=== PATIENT | female | born 1975 | race Caucasian/White ===

== ENCOUNTER 2017-08-05 21:05 | Emergency (ER) | payer MEDICAID ==
[~2017-08-05] VITALS: Ht 154.9 cm; Wt 101.2 kg
[~2017-08-05 21:05] MED LIST: HYDR-565 PO
[2017-08-05] MEDS ORDERED: sulfamethoxazole/trimethoprim DS (800/160mg) tablet PO ONE (21:45)
[2017-08-05] MEDS ORDERED: BACDS PO (21:48)
[2017-08-05] MEDS ORDERED: FLUC150T66 PO (21:48)
[2017-08-05 21:52] VITALS: BP 155/95
== END 2017-08-05 22:00 | disposition home or self-care (01) ==
LOC: ER 21:06
DX: N76.4 Abscess of vulva (principal); I10 Essential (primary) hypertension; J45.909 Unspecified asthma, uncomplicated; K21.9 Gastro-esophageal reflux disease without esophagitis; E11.9 Type 2 diabetes mellitus without complications; F17.210 Nicotine dependence, cigarettes, uncomplicated; Z86.14 Personal history of Methicillin resistant Staphylococcus aureus infection; Z98.51 Tubal ligation status; Z88.6 Allergy status to analgesic agent; Z91.040 Latex allergy status
CPT/HCPCS: 99283

== ENCOUNTER 2017-11-12 13:29 | Emergency (ER) | payer MEDICAID ==
[~2017-11-12] VITALS: Ht 157.5 cm; Wt 103.0 kg
[2017-11-12] MEDS ORDERED: SULF1TAB49 PO (14:22)
[2017-11-12 14:31] VITALS: BP 142/92
== END 2017-11-12 14:33 | disposition home or self-care (01) ==
LOC: ER 13:30
DX: L03.116 Cellulitis of left lower limb (principal); L02.416 Cutaneous abscess of left lower limb; I10 Essential (primary) hypertension; J45.909 Unspecified asthma, uncomplicated; E11.9 Type 2 diabetes mellitus without complications; K21.9 Gastro-esophageal reflux disease without esophagitis; M19.90 Unspecified osteoarthritis, unspecified site; Z86.14 Personal history of Methicillin resistant Staphylococcus aureus infection; Z88.6 Allergy status to analgesic agent; Z91.040 Latex allergy status
CPT/HCPCS: 99283

== ENCOUNTER 2018-03-14 10:03 | Emergency (ER) | payer MEDICAID ==
[~2018-03-14] VITALS: Ht 154.9 cm; Wt 100.0 kg
[2018-03-14 10:23] VITALS: BP 163/103
[2018-03-14] MEDS ORDERED: PENI-88 PO (10:52)
[2018-03-14] MEDS ORDERED: IBUP-1984 PO (10:52)
== END 2018-03-14 11:03 | disposition home or self-care (01) ==
LOC: ER 10:04
DX: K08.89 Other specified disorders of teeth and supporting structures (principal); I10 Essential (primary) hypertension; J45.909 Unspecified asthma, uncomplicated; K21.9 Gastro-esophageal reflux disease without esophagitis; E11.9 Type 2 diabetes mellitus without complications; Z98.51 Tubal ligation status; Z98.890 Other specified postprocedural states; Z91.040 Latex allergy status; Z88.8 Allergy status to other drugs, medicaments and biological substances; Z79.2 Long term (current) use of antibiotics; Z79.1 Long term (current) use of non-steroidal anti-inflammatories (NSAID)
CPT/HCPCS: 99283

== ENCOUNTER 2018-06-08 11:06 | Emergency (ER) | payer MEDICAID ==
[~2018-06-08] VITALS: Ht 154.9 cm; Wt 98.0 kg
[~2018-06-08 11:06] MED LIST changes: +ALBU6.7H INH; +HYDR-4353 PO; -HYDR-565 PO
[2018-06-08 11:22] VITALS: BP 136/91
[2018-06-08] MEDS ORDERED: HYDR-4353 PO (12:19)
[2018-06-08] MEDS ORDERED: CLIN150C2 PO (12:20)
== END 2018-06-08 12:15 | disposition home or self-care (01) ==
LOC: ER 11:06
DX: K04.7 Periapical abscess without sinus (principal); I10 Essential (primary) hypertension; J45.909 Unspecified asthma, uncomplicated; K21.9 Gastro-esophageal reflux disease without esophagitis; E11.9 Type 2 diabetes mellitus without complications; M19.90 Unspecified osteoarthritis, unspecified site; Z86.14 Personal history of Methicillin resistant Staphylococcus aureus infection; Z91.040 Latex allergy status; Z88.6 Allergy status to analgesic agent; Z79.2 Long term (current) use of antibiotics; Z79.899 Other long term (current) drug therapy
CPT/HCPCS: 99283

== ENCOUNTER 2018-07-13 19:21 | Emergency (ER) | payer MEDICAID ==
[~2018-07-13] VITALS: Ht 154.9 cm; Wt 100.0 kg
[2018-07-13 19:41] VITALS: BP 185/95
[2018-07-13] MEDS ORDERED: CLIN300C85 PO (20:49)
[2018-07-13] MEDS ORDERED: ACET1TAB12 PO (20:49)
== END 2018-07-13 21:01 | disposition home or self-care (01) ==
LOC: ER 19:22
DX: K08.89 Other specified disorders of teeth and supporting structures (principal); R22.0 Localized swelling, mass and lump, head; I10 Essential (primary) hypertension; J45.909 Unspecified asthma, uncomplicated; K21.9 Gastro-esophageal reflux disease without esophagitis; E11.9 Type 2 diabetes mellitus without complications; M19.90 Unspecified osteoarthritis, unspecified site; Z86.14 Personal history of Methicillin resistant Staphylococcus aureus infection; Z98.51 Tubal ligation status; Z98.890 Other specified postprocedural states; Z91.040 Latex allergy status; Z88.6 Allergy status to analgesic agent; Z79.2 Long term (current) use of antibiotics; Z79.899 Other long term (current) drug therapy
CPT/HCPCS: 99283

== ENCOUNTER 2019-02-14 01:24 | Emergency (ER) | payer MEDICAID ==
[~2019-02-14] VITALS: Ht 154.9 cm; Wt 97.3 kg
[~2019-02-14 01:24] MED LIST changes: +ACET1TAB12 PO; +CLIN-96 PO
[2019-02-14 01:32] VITALS: BP 166/101
[2019-02-14] MEDS ORDERED: sulfamethoxazole/trimethoprim DS (800/160mg) tablet PO ONE (03:00)
[2019-02-14] MEDS ORDERED: cephalexin 250mg capsule PO ONE (03:00)
[2019-02-14] MEDS ORDERED: BACDS PO (03:03)
[2019-02-14] MEDS ORDERED: CEPH500C5 PO (03:03)
== END 2019-02-14 03:19 | disposition home or self-care (01) ==
LOC: ER 01:25
DX: L02.415 Cutaneous abscess of right lower limb (principal); I10 Essential (primary) hypertension; J45.909 Unspecified asthma, uncomplicated; K21.9 Gastro-esophageal reflux disease without esophagitis; E11.9 Type 2 diabetes mellitus without complications; M19.90 Unspecified osteoarthritis, unspecified site; Z86.14 Personal history of Methicillin resistant Staphylococcus aureus infection; F17.210 Nicotine dependence, cigarettes, uncomplicated; Z98.51 Tubal ligation status; Z91.040 Latex allergy status; Z88.6 Allergy status to analgesic agent; Z79.899 Other long term (current) drug therapy
CPT/HCPCS: 99283

== ENCOUNTER 2019-02-19 10:35 | Emergency (ER) | payer MEDICAID ==
[~2019-02-19] VITALS: Ht 154.9 cm; Wt 91.0 kg
[~2019-02-19 10:35] MED LIST changes: +BACDS PO; +CEPH500C5 PO
[2019-02-19 10:55] VITALS: BP 142/99
[2019-02-19] MEDS ORDERED: HYDR-4353 PO (12:15)
== END 2019-02-19 12:26 | disposition home or self-care (01) ==
LOC: ER 10:36
DX: M25.532 Pain in left wrist (principal); I10 Essential (primary) hypertension; J45.909 Unspecified asthma, uncomplicated; E11.9 Type 2 diabetes mellitus without complications; M19.90 Unspecified osteoarthritis, unspecified site; F17.200 Nicotine dependence, unspecified, uncomplicated; F10.99 Alcohol use, unspecified with unspecified alcohol-induced disorder; Z86.14 Personal history of Methicillin resistant Staphylococcus aureus infection; Z98.890 Other specified postprocedural states; Z98.51 Tubal ligation status; Z88.6 Allergy status to analgesic agent; Z91.040 Latex allergy status; Z79.899 Other long term (current) drug therapy; Y90.9 Presence of alcohol in blood, level not specified
CPT/HCPCS: 29125; 99283

== ENCOUNTER 2019-06-01 16:37 | Emergency (ER) | payer MEDICAID ==
[~2019-06-01] VITALS: Ht 157.5 cm; Wt 88.9 kg
[~2019-06-01 16:37] MED LIST changes: -ALBU6.7H INH; +ALBU6.7H9 INH; -BACDS PO
[2019-06-01 20:36] VITALS: BP 126/85
[2019-06-01] MEDS ORDERED: SULF1TAB49 PO (21:16)
[2019-06-01] MEDS ORDERED: PENI500T2 PO (21:16)
== END 2019-06-01 21:27 | disposition home or self-care (01) ==
LOC: ER 16:37
DX: K04.7 Periapical abscess without sinus (principal); L02.31 Cutaneous abscess of buttock; I10 Essential (primary) hypertension; J45.909 Unspecified asthma, uncomplicated; K21.9 Gastro-esophageal reflux disease without esophagitis; M19.90 Unspecified osteoarthritis, unspecified site; Z98.890 Other specified postprocedural states; Z98.51 Tubal ligation status; Z86.14 Personal history of Methicillin resistant Staphylococcus aureus infection; Z91.040 Latex allergy status; Z88.6 Allergy status to analgesic agent
CPT/HCPCS: 82948; 99283

== ENCOUNTER 2019-07-10 06:37 | Emergency (ER) | payer MEDICAID ==
[~2019-07-10] VITALS: Ht 154.9 cm; Wt 86.4 kg
[~2019-07-10 06:37] MED LIST changes: +CLIN-90 PO; -CLIN-96 PO
[2019-07-10 06:44] VITALS: BP 145/90
[2019-07-10] MEDS ORDERED: MUPI22OI30 TOP (09:08)
[2019-07-10] MEDS ORDERED: SULF1TAB49 PO (09:08)
[2019-07-10] MEDS ORDERED: FLUC150T PO (09:23)
== END 2019-07-10 09:26 | disposition home or self-care (01) ==
LOC: ER 06:38
DX: L02.31 Cutaneous abscess of buttock (principal); I10 Essential (primary) hypertension; J45.909 Unspecified asthma, uncomplicated; K21.9 Gastro-esophageal reflux disease without esophagitis; E11.9 Type 2 diabetes mellitus without complications; M19.90 Unspecified osteoarthritis, unspecified site; F17.200 Nicotine dependence, unspecified, uncomplicated; F10.99 Alcohol use, unspecified with unspecified alcohol-induced disorder; F15.90 Other stimulant use, unspecified, uncomplicated; Z86.14 Personal history of Methicillin resistant Staphylococcus aureus infection; Z98.51 Tubal ligation status; Z98.890 Other specified postprocedural states; Z88.6 Allergy status to analgesic agent; Z91.040 Latex allergy status; Z79.899 Other long term (current) drug therapy; Y90.9 Presence of alcohol in blood, level not specified
CPT/HCPCS: 99283

== ENCOUNTER 2020-04-05 08:57 | Emergency (ER) | payer MEDICAID, OTHER ==
[~2020-04-05] VITALS: Ht 154.9 cm; Wt 77.3 kg
[~2020-04-05 08:57] MED LIST changes: -CEPH500C5 PO; -CLIN-90 PO; +CLIN-97 PO
[2020-04-05 09:21] LABS: CLARITY,URINE CLOUDY (Clear); COLOR,URINE YELLOW (Yellow); GLUCOSE, URINE 100 mg/dl (Neg); KETONES,URINE >=80 mg/dl (Neg); LEUKOCYTE ESTERASE ,URINE MODERATE (Neg); NITRITES, URINE POSITIVE (Neg); OCCULT BLOOD,URINE SMALL (Neg); PROTEIN,URINE 100 mg/dl (Neg); UA COLLECTION TYPE CLN CATCH MIDSTREAM
[2020-04-05 09:23] LABS: URINE HCG NEGATIVE (NEG)
[2020-04-05 09:28] LABS: BACTERIA,URINE 3+ /HPF (Neg); SQUAMOUS EPITHELIAL CELL,UR MODERATE /LPF (FEW); TRICHOMONAS,URINE MANY /HPF (NEGATIVE); WBC,URINE TNTC /HPF (0-4)
[2020-04-05] MEDS ORDERED: normal saline 1000ML IV soln IVB ONE ×2 (09:30→09:40)
[2020-04-05] MEDS ORDERED: morphine 4 MG/ML inj SYRINge IV ONE (09:30)
[2020-04-05] MEDS ORDERED: ondansetron/PF 4mg/2ml inj IV ONE ×2 (09:30)
[2020-04-05 09:50] LABS: BASOPHILS % (AUTO) 0.2 % (0-1); EOSINOPHILS % (AUTO) 0 % (0-6); HEMATOCRIT 33.3 % (35.0-45.0); HEMOGLOBIN 10.7 g/dl (12.0-16.0); LYMPHOCYTES # (AUTO) 0.6 X10'3 (1.1-4.8); LYMPHOCYTES % (AUTO) 6.2 % (21-51); MEAN CORPUSCULAR HEMOGLOBIN 23.6 PG (27.0-31.0); MEAN CORPUSCULAR HGB CONC 32.2 g/dL (33.0-36.5); MEAN CORPUSCULAR VOLUME 73.3 FL (78-98); MEAN PLATELET VOLUME 7.1 FL (7.4-10.4); MONOCYTES # (AUTO) 0.7 X10'3 (0-0.9); NEUTROPHILS # (AUTO) 8.2 X10'3 (1.8-7.7); NEUTROPHILS % (AUTO) 86.6 % (42-75); PLATELET COUNT 227 X10'3 (140-440); RED BLOOD COUNT 4.54 X10'6 (4.20-5.60); RED CELL DISTRIBUTION WIDTH 15.9 % (11.5-14.5); WHITE BLOOD COUNT 9.5 X10'3 (4.5-11.0)
[2020-04-05 10:00] LABS: PARTIAL THROMBOPLASTIN TIME 33 SECONDS (22-32)
[2020-04-05 10:03] LABS: ALANINE AMINOTRANSFERASE 15 U/L (12-78); ALBUMIN 2.9 G/DL (3.4-5.0); ALBUMIN/GLOBULIN RATIO 0.6 (1.1-1.5); ALKALINE PHOSPHATASE 92 IU/L (46-116); ANION GAP 10 (8-16); ASPARTATE AMINO TRANSFERASE 17 U/L (10-37); BILIRUBIN,TOTAL 1.7 MG/DL (0.1-1.0); BLOOD UREA NITROGEN 9 MG/DL (7-18); BUN/CREATININE RATIO 11.1 (6.6-38.0); CHLORIDE 94 MMOL/L (99-107); CREATININE 0.81 MG/DL (0.40-0.90); GLUCOSE 229 MG/DL (70-104); LIPASE < 50 U/L (73-393); POTASSIUM 3.8 MMOL/L (3.5-5.1); SODIUM 127 MMOL/L (135-145); TOTAL CARBON DIOXIDE 22.8 MMOL/L (24-32); TOTAL PROTEIN 7.5 G/DL (6.4-8.2); eGFR 77 ML/MIN
[2020-04-05 10:08] LABS: CALCIUM 8.5 MG/DL (8.5-10.1)
[2020-04-05] MEDS ORDERED: LIDOcaine 5% patch TP ONE (10:20)
[2020-04-05] MEDS ORDERED: CefTRIAXone 1000mg IM Kit (w/lidocaine diluent) IM ONE (10:25)
[2020-04-05] MEDS ORDERED: cephalexin 250mg capsule PO ONE (10:25)
[2020-04-05 10:40] LABS: ETHANOL < 0.010 GM/DL (0.0-0.010)
[2020-04-05] MEDS ORDERED: PHEN-716 PO (10:56)
[2020-04-05] MEDS ORDERED: CEPH500C5 PO (10:56)
[2020-04-05 12:00] VITALS: BP 128/81
[2020-04-05 14:13] LABS: URINE AMPHETAMINE SCREEN POSITIVE (Neg); URINE BARBITUATE SCREEN NEGATIVE (Neg); URINE BENZODIAZEPINES SCREEN NEGATIVE (Neg); URINE CANNABINOID SCREEN POSITIVE (Neg); URINE COCAINE SCREEN NEGATIVE (Neg); URINE METHADONE SCREEN NEGATIVE (Neg); URINE OPIATE SCREEN NEGATIVE (Neg); URINE PHENCYCLIDINE SCREEN NEGATIVE (Neg)
[2020-04-06] MEDS ORDERED: NO HOME MEDS (10:31)
[2020-04-08] MEDS ORDERED: THIA50TA10 PO (10:43)
[2020-04-08] MEDS ORDERED: LACT1CAP26 PO (10:43)
[2020-04-08] MEDS ORDERED: MULT-25 PO (10:43)
[2020-04-08] MEDS ORDERED: ASCO-134 PO (10:43)
[2020-04-08] MEDS ORDERED: CIPR-230 PO (10:43)
[2020-04-08] MEDS ORDERED: FER325T PO (10:43)
[2020-04-08] MEDS ORDERED: HYDR-4383 PO (10:43)
[2020-04-08] MEDS ORDERED: FOLI0.4T2 PO (10:43)
[2020-04-08] MEDS ORDERED: METF-950 PO (10:49)
== END 2020-04-05 11:59 | disposition home or self-care (01) ==
LOC: ER 08:58
DX: N39.0 Urinary tract infection, site not specified (principal); M54.5 Low back pain; R19.7 Diarrhea, unspecified; F19.10 Other psychoactive substance abuse, uncomplicated; E11.65 Type 2 diabetes mellitus with hyperglycemia; I10 Essential (primary) hypertension; J45.909 Unspecified asthma, uncomplicated; K21.9 Gastro-esophageal reflux disease without esophagitis; M19.90 Unspecified osteoarthritis, unspecified site; F17.200 Nicotine dependence, unspecified, uncomplicated; F15.90 Other stimulant use, unspecified, uncomplicated; Z98.51 Tubal ligation status; Z98.890 Other specified postprocedural states; Z86.14 Personal history of Methicillin resistant Staphylococcus aureus infection; Z72.89 Other problems related to lifestyle; Z91.040 Latex allergy status; Z88.6 Allergy status to analgesic agent; Z79.899 Other long term (current) drug therapy
CPT/HCPCS: 36415; 80053; 80305; 80320; 81001; 81025; 82948; 83690; 85025; 85610; 85730; 87077; 87088; 87186; 96361; 96372; 96374; 96375; 99284; J0696; J2270; J2405; J7030

== ENCOUNTER 2020-05-10 18:20 | Emergency (ER) | payer MEDICAID, OTHER ==
[~2020-05-10] VITALS: Ht 154.9 cm; Wt 77.3 kg
[~2020-05-10 18:20] MED LIST changes: -ACET1TAB12 PO; -ALBU6.7H9 INH; +ASCO-134 PO; -CLIN-97 PO; +FER325T PO; -HYDR-4353 PO; +LACT1CAP26 PO; +MULT-25 PO; +THIA50TA10 PO
[2020-05-10 18:35] VITALS: BP 159/98
[2020-05-10] MEDS ORDERED: acetaminophen 325mg tablet PO ONE (21:00)
[2020-05-10 21:13] LABS: COLOR,URINE YELLOW (Yellow); GLUCOSE, URINE 100 mg/dl (Neg); KETONES,URINE NEGATIVE (Neg); LEUKOCYTE ESTERASE ,URINE SMALL (Neg); OCCULT BLOOD,URINE MODERATE (Neg); PROTEIN,URINE 100 mg/dl (Neg)
[2020-05-10 21:20] LABS: URINE HCG NEGATIVE (NEG)
[2020-05-10 21:26] LABS: CLARITY,URINE SLIGHTLY CLOUDY (Clear); NITRITES, URINE NEGATIVE (Neg); UA COLLECTION TYPE CLN CATCH MIDSTREAM
[2020-05-10 21:27] LABS: BACTERIA,URINE FEW /HPF (Neg); RBC,URINE 0-2 /HPF (0-2); SQUAMOUS EPITHELIAL CELL,UR FEW /LPF (FEW); WBC,URINE 20-30 /HPF (0-4)
[2020-05-10] MEDS ORDERED: fluconazole 100mg tablet PO ONE (21:30)
[2020-05-10] MEDS ORDERED: ACYC-202 PO (21:31)
[2020-05-10] MEDS ORDERED: MICO44CM TOP (21:31)
[2020-05-10] MEDS ORDERED: LIDOcaine 2% 10ml TOPICAL JELLY (Urojet) MM ONE (21:55)
[2020-05-10] MEDS ORDERED: LIDOcaine 2% 5ml jelly MM ONE (22:00)
== END 2020-05-10 22:46 | disposition home or self-care (01) ==
LOC: ER 18:21
DX: B37.3 Candidiasis of vulva and vagina (principal); R21 Rash and other nonspecific skin eruption; I10 Essential (primary) hypertension; J45.909 Unspecified asthma, uncomplicated; K21.9 Gastro-esophageal reflux disease without esophagitis; E11.9 Type 2 diabetes mellitus without complications; M19.90 Unspecified osteoarthritis, unspecified site; F15.90 Other stimulant use, unspecified, uncomplicated; Z87.440 Personal history of urinary (tract) infections; Z86.14 Personal history of Methicillin resistant Staphylococcus aureus infection; Z98.51 Tubal ligation status; Z98.890 Other specified postprocedural states; Z72.89 Other problems related to lifestyle; Z88.8 Allergy status to other drugs, medicaments and biological substances; Z91.030 Bee allergy status; Z79.2 Long term (current) use of antibiotics; Z79.899 Other long term (current) drug therapy
CPT/HCPCS: 81001; 81025; 87077; 87088; 87186; 99284

== ENCOUNTER 2020-11-18 21:04 | Emergency (ER) | payer MEDICAID ==
[~2020-11-18] VITALS: Ht 154.9 cm; Wt 81.8 kg
[~2020-11-18 21:04] MED LIST changes: +MICO44CM TOP
[2020-11-18 22:05] LABS: ALANINE AMINOTRANSFERASE 20 U/L (12-78); ALBUMIN 3.8 G/DL (3.4-5.0); ALKALINE PHOSPHATASE 81 IU/L (46-116); ANION GAP 13 (8-16); ASPARTATE AMINO TRANSFERASE 16 U/L (10-37); BILIRUBIN,TOTAL 0.3 MG/DL (0.1-1.0); BLOOD UREA NITROGEN 20 MG/DL (7-18); BUN/CREATININE RATIO 23.3 (6.6-38.0); CALCIUM 8.9 MG/DL (8.5-10.1); CHLORIDE 103 MMOL/L (99-107); CREATININE 0.86 MG/DL (0.40-0.90); GLUCOSE 208 MG/DL (70-104); LIPASE 100 U/L (73-393); POTASSIUM 3.5 MMOL/L (3.5-5.1); SODIUM 139 MMOL/L (135-145); TOTAL CARBON DIOXIDE 23.3 MMOL/L (24-32); TOTAL PROTEIN 7.8 G/DL (6.4-8.2); eGFR 72 ML/MIN
[2020-11-18 22:08] LABS: BASOPHILS % (AUTO) 0.4 % (0-1); EOSINOPHILS # (AUTO) 0.1 X10'3 (0-0.9); EOSINOPHILS % (AUTO) 1.2 % (0-6); HEMATOCRIT 31.8 % (35.0-45.0); HEMOGLOBIN 9.7 g/dl (12.0-16.0); LYMPHOCYTES % (AUTO) 21.7 % (21-51); MEAN CORPUSCULAR HEMOGLOBIN 21.1 PG (27.0-31.0); MEAN CORPUSCULAR HGB CONC 30.6 g/dL (33.0-36.5); MEAN CORPUSCULAR VOLUME 69.1 FL (78-98); MEAN PLATELET VOLUME 7.4 FL (7.4-10.4); MONOCYTES # (AUTO) 0.5 X10'3 (0-0.9); MONOCYTES % (AUTO) 5.4 % (2-12); NEUTROPHILS # (AUTO) 6.7 X10'3 (1.8-7.7); NEUTROPHILS % (AUTO) 71.3 % (42-75); PLATELET COUNT 376 X10'3 (140-440); RED BLOOD COUNT 4.61 X10'6 (4.20-5.60); RED CELL DISTRIBUTION WIDTH 16.9 % (11.5-14.5); WHITE BLOOD COUNT 9.3 X10'3 (4.5-11.0)
[2020-11-18] MEDS ORDERED: normal saline 1000ML IV soln IVB ONE (22:50)
[2020-11-18] MEDS ORDERED: ondansetron/PF 4mg/2ml inj IV ONE (22:50)
[2020-11-18 23:00] LABS: ETHANOL < 0.010 GM/DL (0.0-0.010)
[2020-11-18] MEDS: morphine 4 MG/ML inj SYRINge IV PRN (23:00)
[2020-11-18 23:32] LABS: PLATELET ESTIMATE NORMAL
[2020-11-18 23:33] LABS: ANISOCYTOSIS 1+; ELLIPTOCYTES FEW; MICROCYTOSIS 2+
--- NOTE | 2020-11-19 00:33 | NUR ---
Patient got herself up to bathroom w/o alerting nurse and no urine rec'd
[2020-11-19] MEDS ORDERED: ketorolac trometh. 30mg/ml inj. IV ONE (00:35)
[2020-11-19] MEDS: morphine 4 MG/ML inj SYRINge IV PRN (00:53)
[2020-11-19] MEDS ORDERED: FLO0.4C PO (00:57)
[2020-11-19] MEDS ORDERED: HYDR-3965 PO (00:57)
[2020-11-19] MEDS ORDERED: ONDA8TAB13 PO (00:57)
[2020-11-19 01:21] VITALS: BP 204/111
== END 2020-11-19 01:22 | disposition home or self-care (01) ==
LOC: ER 21:06
DX: N20.0 Calculus of kidney (principal); R11.2 Nausea with vomiting, unspecified; R10.32 Left lower quadrant pain; I10 Essential (primary) hypertension; J45.909 Unspecified asthma, uncomplicated; K21.9 Gastro-esophageal reflux disease without esophagitis; E11.9 Type 2 diabetes mellitus without complications; M19.90 Unspecified osteoarthritis, unspecified site; F17.200 Nicotine dependence, unspecified, uncomplicated; F15.90 Other stimulant use, unspecified, uncomplicated; Z86.14 Personal history of Methicillin resistant Staphylococcus aureus infection; Z98.51 Tubal ligation status; Z98.890 Other specified postprocedural states; Z72.89 Other problems related to lifestyle; Z91.040 Latex allergy status; Z88.6 Allergy status to analgesic agent; Z79.899 Other long term (current) drug therapy
CPT/HCPCS: 36415; 74176; 80053; 80320; 82948; 83690; 85008; 85025; 96374; 96375; 96376; 99284; J1885; J2270; J2405; J7030

== ENCOUNTER 2023-09-15 17:08 | Inpatient (IN) | payer MEDICAID ==
[~2023-09-15] VITALS: Ht 154.9 cm; Wt 93.8 kg
[~2023-09-15 17:08] MED LIST changes: +ONDA8TAB13 PO
[2023-09-15 17:59] LABS: BASOPHILS % (AUTO) 0.1 % (0-1); EOSINOPHILS % (AUTO) 0.1 % (0-6); HEMATOCRIT 45.6 % (35.0-45.0); LYMPHOCYTES # (AUTO) 0.4 X10'3 (1.1-4.8); LYMPHOCYTES % (AUTO) 3.7 % (21-51); MEAN CORPUSCULAR HEMOGLOBIN 28.9 PG (27.0-31.0); MEAN CORPUSCULAR HGB CONC 32.8 g/dL (33.0-36.5); MEAN CORPUSCULAR VOLUME 87.9 FL (78-98); MEAN PLATELET VOLUME 7.8 FL (7.4-10.4); MONOCYTES # (AUTO) 0.7 X10'3 (0-0.9); MONOCYTES % (AUTO) 7.1 % (2-12); NEUTROPHILS # (AUTO) 9.2 X10'3 (1.8-7.7); PLATELET COUNT 278 X10'3 (140-440); RED BLOOD COUNT 5.18 X10'6 (4.20-5.60); RED CELL DISTRIBUTION WIDTH 15.4 % (11.5-14.5); WHITE BLOOD COUNT 10.3 X10'3 (4.5-11.0)
[2023-09-15] MEDS: insulin Lispro (HumaLOG) vial - multi-dose SQ ONE (18:00)
[2023-09-15] MEDS: normal saline 1000ML IV soln IV ONE (18:16)
[2023-09-15] MEDS: vancomycin/NS 1 GM ADD-VANTAGE 250 ML IV ONE (18:32)
[2023-09-15 18:40] LABS: ALBUMIN 2.7 G/DL (3.4-5.0); ANION GAP 27 (8-16); BLOOD UREA NITROGEN 16 MG/DL (7-18); BUN/CREATININE RATIO 16.8 (10.0-20.0); CHLORIDE 100 MMOL/L (99-107); CREATININE 0.95 MG/DL (0.40-0.90); ETHANOL < 10 MG/DL (<10); POTASSIUM 4.5 MMOL/L (3.5-5.1); SODIUM 136 MMOL/L (135-145); eCRCL 56 ML/MIN; eGFR 63 ML/MIN
[2023-09-15 18:45] LABS: GLUCOSE 444 MG/DL (70-104)
[2023-09-15 18:46] LABS: TOTAL CARBON DIOXIDE 9.1 MMOL/L (24-32)
[2023-09-15] MEDS ORDERED: dextrose 50%-water 50ml dispensing syringe IV PRN (18:55)
[2023-09-15 19:01] LABS: URINE HCG NEGATIVE (NEG)
[2023-09-15 19:02] LABS: BILIRUBIN,URINE SMALL (Neg); CLARITY,URINE SLIGHTLY CLOUDY (Clear); COLOR,URINE YELLOW (Yellow); GLUCOSE, URINE 500 mg/dl (Neg); KETONES,URINE >=80 mg/dl (Neg); LEUKOCYTE ESTERASE ,URINE NEGATIVE (Neg); NITRITES, URINE NEGATIVE (Neg); OCCULT BLOOD,URINE MODERATE (Neg); PH,URINE 5.5 (4.8-8.0); PROTEIN,URINE TRACE mg/dl (Neg); UROBILINOGEN,URINE 0.2 E.U/dL (0.2-1.0)
[2023-09-15 19:08] LABS: UA COLLECTION TYPE CLN CATCH MIDSTREAM
[2023-09-15 19:14] LABS: SQUAMOUS EPITHELIAL CELL,UR MODERATE /LPF (FEW)
[2023-09-15 19:15] LABS: RBC,URINE 50-100 /HPF (0-2); WBC,URINE 0-4 /HPF (0-4); YEAST FEW /HPF (NEGATIVE)
[2023-09-15 19:16] LABS: BACTERIA,URINE FEW /HPF (Neg)
[2023-09-15 19:18] LABS: URINE AMPHETAMINE SCREEN NEGATIVE (Neg); URINE BARBITUATE SCREEN NEGATIVE (Neg); URINE BENZODIAZEPINES SCREEN NEGATIVE (Neg); URINE CANNABINOID SCREEN NEGATIVE (Neg); URINE COCAINE SCREEN NEGATIVE (Neg); URINE METHADONE SCREEN NEGATIVE (Neg); URINE OPIATE SCREEN NEGATIVE (Neg); URINE PHENCYCLIDINE SCREEN NEGATIVE (Neg)
[2023-09-15] MEDS: Insulin Reg/NS 100units/100mL 100 ML IV ONE (19:38)
[2023-09-15] MEDS: morphine 4 MG/ML inj SYRINge IV ONE (20:01)
[2023-09-15] MEDS: ondansetron/PF 4mg/2ml inj IV ONE (20:01)
[2023-09-15] MEDS ORDERED: acetaminophen 325mg tablet PO PRN (20:05)
[2023-09-15] MEDS ORDERED: magnesium hydroxide 30ml (MOM) UD suspension PO PRN (20:05)
[2023-09-15] MEDS ORDERED: mag hydrox/Alum hydrox/simeth 30ml oral suspension PO PRN (20:05)
[2023-09-15] MEDS ORDERED: magnesium Cl slow-release 64mg tablet PO PRN (20:05)
[2023-09-15] MEDS ORDERED: potassium Cl 20 mEq SR tablet PO PRN ×2 (20:05)
[2023-09-15] MEDS: ringers solution, lacted 1,000 ML IV ONE ×2 (20:05)
[2023-09-15 20:41] LABS: ABG BASE EXCESS -18.8 mmol/L (-2.0-2.0); ABG HCO3 6.6 mmol/L (22.0-26.0); ABG OXYGEN SATURATION 95.9 % (94-97); ABG PCO2 (T) 16.8 mmHg (32.0-45.0); ALLEN'S TEST Modified; FCOHb 0.7 % (0.0-3.9); FHHb 4.1 % (0.0-5.0); FMetHb 0.1 % (0.0-1.5); FO2Hb 95.1 % (94-97); PATIENT TEMPERATURE 36.9; TOTAL HEMOGLOBIN 15.2 G/dl (12.0-16.0)
[2023-09-15] MEDS: cefepime 2g/NS 100ml ADVANTAGE 100 ML IV SCH (22:01)
[2023-09-15] MEDS: acetaminophen 1,000mg/100ml IV 100 ML IV ONE (22:25)
[2023-09-15] MEDS: ringers solution, lacted 1,000 ML IV SCH (23:29)
[2023-09-16] MEDS ORDERED: morphine 4 MG/ML inj SYRINge IV PRN (00:45)
[2023-09-16] MEDS: morphine 4 MG/ML inj SYRINge IV PRN (01:27)
[2023-09-16] MEDS ORDERED: DEXTROSE 15 GM of carb/4 tabs (each vial/BOTTLE has 4 tablets) PO PRN ×4 (02:05→17:25)
[2023-09-16] MEDS ORDERED: dextrose 50%-water 50ml dispensing syringe IV PRN ×4 (02:05→17:25)
[2023-09-16] MEDS ORDERED: insulin Lispro (HumaLOG) vial - multi-dose SQ SCH (02:05)
[2023-09-16] MEDS ORDERED: glucagon, human recombinant 1mg kit SUBCUT PRN ×2 (02:05→17:25)
[2023-09-16] MEDS: MESSAGE TO PHARMACY PO ONE ×2 (02:08→17:32)
[2023-09-16 02:20] LABS: ALBUMIN 2.2 G/DL (3.4-5.0); ANION GAP 17 (8-16); BLOOD UREA NITROGEN 15 MG/DL (7-18); BUN/CREATININE RATIO 17.2 (10.0-20.0); CALCIUM 9.5 MG/DL (8.5-10.1); CHLORIDE 110 MMOL/L (99-107); CREATININE 0.87 MG/DL (0.40-0.90); GLUCOSE 293 MG/DL (70-104); MAGNESIUM 1.7 MG/DL (1.5-2.4); PHOSPHORUS 1.3 MG/DL (2.3-4.5); POTASSIUM 3.8 MMOL/L (3.5-5.1); SODIUM 141 MMOL/L (135-145); eCRCL 61 ML/MIN; eGFR 70 ML/MIN
[2023-09-16] MEDS: dextrose 5%-1/2 normal saline 1,000 ML IV SCH (02:54)
[2023-09-16] MEDS: potassium CL 20mEq in D5-1/2NS 1,000 ML IV PRN (04:18)
[2023-09-16 07:58] LABS: BASOPHILS % (AUTO) 0.1 % (0-1); EOSINOPHILS % (AUTO) 0 % (0-6); HEMATOCRIT 39.4 % (35.0-45.0); LYMPHOCYTES # (AUTO) 0.2 X10'3 (1.1-4.8); LYMPHOCYTES % (AUTO) 2.3 % (21-51); MEAN CORPUSCULAR HEMOGLOBIN 28.8 PG (27.0-31.0); MEAN CORPUSCULAR HGB CONC 32.9 g/dL (33.0-36.5); MEAN CORPUSCULAR VOLUME 87.5 FL (78-98); MEAN PLATELET VOLUME 7.4 FL (7.4-10.4); MONOCYTES # (AUTO) 0.3 X10'3 (0-0.9); NEUTROPHILS # (AUTO) 8.1 X10'3 (1.8-7.7); NEUTROPHILS % (AUTO) 94.6 % (42-75); PLATELET COUNT 175 X10'3 (140-440); RED CELL DISTRIBUTION WIDTH 15.6 % (11.5-14.5); WHITE BLOOD COUNT 8.6 X10'3 (4.5-11.0)
[2023-09-16] MEDS: docusate sod 100mg capsule PO SCH (08:00)
[2023-09-16 08:43] LABS: ALANINE AMINOTRANSFERASE 17 U/L (12-78); ALBUMIN/GLOBULIN RATIO 0.4 (1.1-1.5); ALKALINE PHOSPHATASE 72 IU/L (46-116); ANION GAP 13 (8-16); ASPARTATE AMINO TRANSFERASE 13 U/L (10-37); BILIRUBIN,TOTAL 0.5 MG/DL (0.1-1.0); BLOOD UREA NITROGEN 14 MG/DL (7-18); BUN/CREATININE RATIO 18.7 (10.0-20.0); CALCIUM 9.4 MG/DL (8.5-10.1); CHLORIDE 111 MMOL/L (99-107); CREATININE 0.75 MG/DL (0.40-0.90); GLUCOSE 257 MG/DL (70-104); MAGNESIUM 1.7 MG/DL (1.5-2.4); POTASSIUM 3.4 MMOL/L (3.5-5.1); SODIUM 139 MMOL/L (135-145); TOTAL CARBON DIOXIDE 15.3 MMOL/L (24-32); TOTAL PROTEIN 6.5 G/DL (6.4-8.2); eCRCL 71 ML/MIN; eGFR 83 ML/MIN
[2023-09-16 08:45] LABS: PHOSPHORUS 0.9 MG/DL (2.3-4.5)
[2023-09-16 09:05] LABS: HEMOGLOBIN A1C > 12.0 % (4.5-6.2)
[2023-09-16] MEDS: enoxaparin 40mg/0.4ml syringe SUBCUT SCH (11:15)
[2023-09-16] MEDS: ondansetron/PF 4mg/2ml inj IV PRN (11:27)
[2023-09-16 12:18] LABS: ABG BASE EXCESS -8.5 mmol/L (-2.0-2.0); ABG HCO3 15.4 mmol/L (22.0-26.0); ABG OXYGEN SATURATION 93.5 % (94-97); ABG PCO2 (T) 27.2 mmHg (32.0-45.0); ABG PH (T) 7.367 (7.350-7.450); ALLEN'S TEST POSITIVE; FCOHb 0.5 % (0.0-3.9); FHHb 6.4 % (0.0-5.0); FMetHb 0.3 % (0.0-1.5); FO2Hb 92.8 % (94-97); TOTAL HEMOGLOBIN 14.6 G/dl (12.0-16.0)
[2023-09-16 12:38] LABS: TOTAL CELLS COUNTED 100
[2023-09-16 12:39] LABS: BURR CELLS FEW; ELLIPTOCYTES FEW; PLATELET ESTIMATE NORMAL
[2023-09-16] MEDS: ringers solution, lacted 1,000 ML IV ONE ×2 (12:50)
[2023-09-16] MEDS ORDERED: potassium phosphate inj 30 MMOL in normal saline 250ml IV soln 250 ML IV ONE (12:55)
[2023-09-16] MEDS ORDERED: potassium phosphate inj 15 MMOL in normal saline 250ml IV soln 250 ML IV ONE (12:55)
[2023-09-16] MEDS: ringers solution, lacted 1,000 ML IV SCH (14:43)
[2023-09-16 15:56] LABS: ANION GAP 11 (8-16); BLOOD UREA NITROGEN 15 MG/DL (7-18); BUN/CREATININE RATIO 23.1 (10.0-20.0); CALCIUM 9.5 MG/DL (8.5-10.1); CHLORIDE 109 MMOL/L (99-107); CREATININE 0.65 MG/DL (0.40-0.90); GLUCOSE 156 MG/DL (70-104); POTASSIUM 3.7 MMOL/L (3.5-5.1); SODIUM 138 MMOL/L (135-145); TOTAL CARBON DIOXIDE 18.3 MMOL/L (24-32); eCRCL 82 ML/MIN; eGFR > 90 ML/MIN
[2023-09-16] MEDS: insulin regular, human U-100 3ml vial - multi-dose SQ SCH (17:00)
[2023-09-16] MEDS: magnesium 2GM in 50ml NS 50 ML IV ONE (17:31)
[2023-09-16] MEDS: potassium phosphate inj 30 MMOL in normal saline 500ml IV soln 500 ML IV ONE (19:11)
[2023-09-16] MEDS: insulin glargine (Lantus) pen - multi-dose SQ SCH (19:26)
[2023-09-16] MEDS ORDERED: insulin glargine (Lantus) pen - multi-dose SQ SCH (21:00)
[2023-09-17] VITALS (14 sets, daily range): BP systolic 134–165; BP diastolic 64–80; PULSE 90–105; RESP 16–30; TEMP 97.3–99.2; O2SAT 91–96
[2023-09-17] MEDS: ipratropium/albuterol 3ml nebule NEB PRN (00:34)
[2023-09-17 06:52] LABS: BASOPHILS % (AUTO) 0.1 % (0-1); EOSINOPHILS % (AUTO) 0.1 % (0-6); HEMATOCRIT 34.9 % (35.0-45.0); HEMOGLOBIN 11.8 g/dl (12.0-16.0); LYMPHOCYTES # (AUTO) 0.3 X10'3 (1.1-4.8); LYMPHOCYTES % (AUTO) 3.1 % (21-51); MEAN CORPUSCULAR HEMOGLOBIN 29.2 PG (27.0-31.0); MEAN CORPUSCULAR HGB CONC 33.8 g/dL (33.0-36.5); MEAN CORPUSCULAR VOLUME 86.3 FL (78-98); MEAN PLATELET VOLUME 7.8 FL (7.4-10.4); MONOCYTES # (AUTO) 0.5 X10'3 (0-0.9); MONOCYTES % (AUTO) 4.8 % (2-12); NEUTROPHILS # (AUTO) 9.3 X10'3 (1.8-7.7); NEUTROPHILS % (AUTO) 91.9 % (42-75); PLATELET COUNT 97 X10'3 (140-440); RED BLOOD COUNT 4.04 X10'6 (4.20-5.60); WHITE BLOOD COUNT 10.1 X10'3 (4.5-11.0)
[2023-09-17 07:28] LABS: ALANINE AMINOTRANSFERASE 14 U/L (12-78); ALBUMIN 2.1 G/DL (3.4-5.0); ALBUMIN/GLOBULIN RATIO 0.5 (1.1-1.5); ALKALINE PHOSPHATASE 90 IU/L (46-116); ANION GAP 10 (8-16); ASPARTATE AMINO TRANSFERASE 13 U/L (10-37); BILIRUBIN,TOTAL 0.6 MG/DL (0.1-1.0); BLOOD UREA NITROGEN 18 MG/DL (7-18); BUN/CREATININE RATIO 23.7 (10.0-20.0); CALCIUM 9.3 MG/DL (8.5-10.1); CHLORIDE 103 MMOL/L (99-107); CREATININE 0.76 MG/DL (0.40-0.90); GLUCOSE 296 MG/DL (70-104); MAGNESIUM 1.9 MG/DL (1.5-2.4); PHOSPHORUS 2.5 MG/DL (2.3-4.5); SODIUM 133 MMOL/L (135-145); TOTAL CARBON DIOXIDE 20.2 MMOL/L (24-32); TOTAL PROTEIN 6.4 G/DL (6.4-8.2); eCRCL 70 ML/MIN; eGFR 82 ML/MIN
[2023-09-17 07:51] LABS: POTASSIUM 4.1 MMOL/L (3.5-5.1)
[2023-09-17 08:22] LABS: ANISOCYTOSIS 1+; PLATELET ESTIMATE DECREASED; TOTAL CELLS COUNTED 100; TOXIC GRANULATION 1+
[2023-09-17 08:23] LABS: BURR CELLS 1+; ROULEAUX 1+
[2023-09-17] MEDS: insulin Lispro (HumaLOG) vial - multi-dose SQ SCH (14:33)
[2023-09-18] VITALS (8 sets, daily range): BP systolic 119–149; BP diastolic 69–83; PULSE 86–97; RESP 17–29; TEMP 97–99; O2SAT 92–97
[2023-09-18 01:59] LABS: ABG BASE EXCESS -1.7 mmol/L (-2.0-2.0); ABG HCO3 22.1 mmol/L (22.0-26.0); ABG OXYGEN SATURATION 96.5 % (94-97); ABG PO2 (T) 79.3 mmHg (75.0-100.0); ALLEN'S TEST POSITIVE; FCOHb 0.6 % (0.0-3.9); FHHb 3.5 % (0.0-5.0); FLOW 2 L/min; FMetHb 0.3 % (0.0-1.5); FO2Hb 95.6 % (94-97); MODE NASAL CANNULA; PATIENT TEMPERATURE 36.3; TOTAL HEMOGLOBIN 12.1 G/dl (12.0-16.0)
[2023-09-18 06:52] LABS: BASOPHILS % (AUTO) 0.1 % (0-1); EOSINOPHILS % (AUTO) 0.2 % (0-6); HEMOGLOBIN 11.4 g/dl (12.0-16.0); LYMPHOCYTES # (AUTO) 0.5 X10'3 (1.1-4.8); LYMPHOCYTES % (AUTO) 5.8 % (21-51); MEAN CORPUSCULAR HEMOGLOBIN 28.6 PG (27.0-31.0); MEAN CORPUSCULAR HGB CONC 33.5 g/dL (33.0-36.5); MEAN CORPUSCULAR VOLUME 85.5 FL (78-98); MEAN PLATELET VOLUME 7.6 FL (7.4-10.4); MONOCYTES # (AUTO) 0.5 X10'3 (0-0.9); MONOCYTES % (AUTO) 5.5 % (2-12); NEUTROPHILS # (AUTO) 8.3 X10'3 (1.8-7.7); NEUTROPHILS % (AUTO) 88.4 % (42-75); PLATELET COUNT 73 X10'3 (140-440); RED BLOOD COUNT 3.98 X10'6 (4.20-5.60); RED CELL DISTRIBUTION WIDTH 15.3 % (11.5-14.5); WHITE BLOOD COUNT 9.3 X10'3 (4.5-11.0)
[2023-09-18 07:20] LABS: ALANINE AMINOTRANSFERASE 15 U/L (12-78); ALBUMIN 1.5 G/DL (3.4-5.0); ALBUMIN/GLOBULIN RATIO 0.3 (1.1-1.5); ALKALINE PHOSPHATASE 113 IU/L (46-116); ANION GAP 10 (8-16); ASPARTATE AMINO TRANSFERASE 16 U/L (10-37); BILIRUBIN,TOTAL 0.6 MG/DL (0.1-1.0); BLOOD UREA NITROGEN 17 MG/DL (7-18); CALCIUM 8.7 MG/DL (8.5-10.1); CHLORIDE 101 MMOL/L (99-107); CREATININE 0.46 MG/DL (0.40-0.90); GLUCOSE 201 MG/DL (70-104); MAGNESIUM 1.7 MG/DL (1.5-2.4); PHOSPHORUS 1.9 MG/DL (2.3-4.5); POTASSIUM 3.2 MMOL/L (3.5-5.1); SODIUM 134 MMOL/L (135-145); TOTAL CARBON DIOXIDE 23.4 MMOL/L (24-32); TOTAL PROTEIN 5.9 G/DL (6.4-8.2); eCRCL 115 ML/MIN; eGFR > 90 ML/MIN
[2023-09-18] MEDS ORDERED: HYDROcodone/acetaminophen 5mg/325mg tablet PO PRN (15:10)
[2023-09-18] MEDS: HYDROcodone/acetaminophen 10/325mg tab PO PRN (15:18)
[2023-09-18 15:54] LABS: D-DIMER 3.14 MG/L FEU (0-0.50)
[2023-09-18] MEDS ORDERED: METH-797 PO (16:36)
[2023-09-18] MEDS ORDERED: CLIN300C56 PO (16:36)
[2023-09-18] MEDS ORDERED: HYDR-3972 PO (16:36)
[2023-09-18] MEDS ORDERED: OMEP20CA16 PO (16:36)
[2023-09-18] MEDS ORDERED: ROSU20TA73 PO (16:36)
[2023-09-18] MEDS ORDERED: IBUP-1986 (16:36)
[2023-09-18] MEDS ORDERED: NITR100C11 PO (16:36)
[2023-09-18] MEDS ORDERED: ATOR40TA72 PO (16:36)
[2023-09-18] MEDS ORDERED: POTA-206 PO (16:36)
[2023-09-18] MEDS ORDERED: NITR0.4T48 (16:36)
[2023-09-18] MEDS ORDERED: AMOX500C4 PO (16:36)
[2023-09-18] MEDS ORDERED: OLME5TAB29 PO (16:36)
[2023-09-18] MEDS ORDERED: BLOO-1084 (16:36)
[2023-09-18] MEDS ORDERED: CEPH-585 PO (16:36)
[2023-09-18] MEDS ORDERED: PREG75CA76 PO (16:36)
[2023-09-18] MEDS ORDERED: BENZ-111 PO (16:36)
[2023-09-18] MEDS ORDERED: METO25TA6 PO (16:36)
[2023-09-18] MEDS ORDERED: DIF150T PO (16:36)
[2023-09-18] MEDS ORDERED: BUDE180A (16:36)
[2023-09-18] MEDS ORDERED: CLOP75TA34 PO (16:36)
[2023-09-18] MEDS ORDERED: IBUP-1985 (16:36)
[2023-09-18] MEDS ORDERED: LOT1VCR VG (16:36)
[2023-09-18] MEDS ORDERED: METR-159 (16:36)
[2023-09-18] MEDS ORDERED: NICO-631 TOP (16:36)
[2023-09-18] MEDS ORDERED: GABAPENTIN (16:36)
[2023-09-18] MEDS ORDERED: MONT-40 PO (16:36)
[2023-09-18] MEDS ORDERED: METF-900 PO (16:36)
[2023-09-18] MEDS ORDERED: AZIT-164 PO (16:36)
[2023-09-18] MEDS ORDERED: DEXA2TAB (16:36)
[2023-09-18] MEDS ORDERED: SITA50TA7 PO (16:36)
[2023-09-18] MEDS ORDERED: FURO20TA4 PO (16:36)
[2023-09-18] MEDS ORDERED: AMOX875T10 PO (16:36)
[2023-09-18] MEDS ORDERED: AMOX-580 PO (16:36)
[2023-09-18] MEDS ORDERED: OXYC5TAB2 PO (16:36)
[2023-09-18] MEDS ORDERED: LANC-509 (16:36)
[2023-09-18] MEDS ORDERED: DEXA4TAB PO (16:36)
[2023-09-18] MEDS ORDERED: FERR324T2 PO (16:36)
[2023-09-18] MEDS ORDERED: ACET325T55 PO (16:36)
[2023-09-18] MEDS ORDERED: OXYC-658 PO (16:36)
[2023-09-18] MEDS ORDERED: PRED20TA PO (16:36)
[2023-09-18] MEDS ORDERED: FAMO20TA8 PO (16:36)
[2023-09-18] MEDS ORDERED: iohexol 350MG/ML 100ml bottle IV ONE (17:00)
[2023-09-18] MEDS: CefTRIAXone/D5W-Rocephin 1gm 50 ML IV SCH (17:39)
[2023-09-18] MEDS: Neutra Phos packet PO SCH (17:39)
[2023-09-18] MEDS: normal saline 1000ml 1,000 ML IV SCH (17:40)
[2023-09-18 17:42] LABS: STREP A SCREEN NEGATIVE (Neg)
[2023-09-18] MEDS ORDERED: potassium bicarbonate/cit acid 25mEq tablet.effervescent PO PRN (18:14)
[2023-09-18] MEDS: potassium bicarbonate/cit acid 25mEq tablet.effervescent PO PRN (18:19)
[2023-09-18] MEDS: nystatin 500,000 unit/5ML UD oral suspension PO SCH (20:37)
[2023-09-19] VITALS (12 sets, daily range): BP systolic 111–157; BP diastolic 78–90; PULSE 85–101; RESP 18–32; TEMP 97.7–99.9; O2SAT 93–98
[2023-09-19 06:21] LABS: ALANINE AMINOTRANSFERASE 20 U/L (12-78); ALBUMIN 1.4 G/DL (3.4-5.0); ALBUMIN/GLOBULIN RATIO 0.3 (1.1-1.5); ALKALINE PHOSPHATASE 97 IU/L (46-116); ANION GAP 9 (8-16); ASPARTATE AMINO TRANSFERASE 22 U/L (10-37); BILIRUBIN,TOTAL 0.7 MG/DL (0.1-1.0); BLOOD UREA NITROGEN 12 MG/DL (7-18); BUN/CREATININE RATIO 33.3 (10.0-20.0); CALCIUM 7.5 MG/DL (8.5-10.1); CHLORIDE 100 MMOL/L (99-107); CREATININE 0.36 MG/DL (0.40-0.90); GLUCOSE 152 MG/DL (70-104); MAGNESIUM 1.7 MG/DL (1.5-2.4); PHOSPHORUS 3.2 MG/DL (2.3-4.5); SODIUM 140 MMOL/L (135-145); TOTAL CARBON DIOXIDE 30.6 MMOL/L (24-32); TOTAL PROTEIN 5.7 G/DL (6.4-8.2); eCRCL 147 ML/MIN; eGFR > 90 ML/MIN
[2023-09-19 06:35] LABS: BASOPHILS % (AUTO) 0 % (0-1); EOSINOPHILS % (AUTO) 0.4 % (0-6); HEMATOCRIT 36.2 % (35.0-45.0); HEMOGLOBIN 12.2 g/dl (12.0-16.0); LYMPHOCYTES # (AUTO) 0.6 X10'3 (1.1-4.8); LYMPHOCYTES % (AUTO) 8.2 % (21-51); MEAN CORPUSCULAR HEMOGLOBIN 28.8 PG (27.0-31.0); MEAN CORPUSCULAR HGB CONC 33.6 g/dL (33.0-36.5); MEAN CORPUSCULAR VOLUME 85.7 FL (78-98); MEAN PLATELET VOLUME 8.4 FL (7.4-10.4); MONOCYTES # (AUTO) 0.9 X10'3 (0-0.9); MONOCYTES % (AUTO) 11.6 % (2-12); NEUTROPHILS # (AUTO) 6.3 X10'3 (1.8-7.7); NEUTROPHILS % (AUTO) 79.8 % (42-75); PLATELET COUNT 76 X10'3 (140-440); RED BLOOD COUNT 4.23 X10'6 (4.20-5.60); RED CELL DISTRIBUTION WIDTH 15.1 % (11.5-14.5); WHITE BLOOD COUNT 7.9 X10'3 (4.5-11.0)
[2023-09-19] MEDS ORDERED: magnesium Cl slow-release 64mg tablet PO PRN (06:45)
[2023-09-19] MEDS ORDERED: magnesium 2GM in 50ml NS 50 ML IV PRN (06:45)
[2023-09-19] MEDS ORDERED: magnesium 4gm in 100ml NS 100 ML IV PRN (06:45)
[2023-09-19] MEDS ORDERED: potassium Cl 20 mEq SR tablet PO PRN ×2 (06:45)
[2023-09-19] MEDS: K and/or MAG REPLACEMENT MC SCH (08:00)
[2023-09-19] MEDS: ampicillin/sulbac 3gm/NS 100ml 100 ML IV SCH (11:51)
[2023-09-19] MEDS: HYDROmorphone inj. 0.5 MG/0.5 ML DISP.SYRIN IV PRN (12:11)
[2023-09-19] MEDS ORDERED: iohexol 300mg/ml 100ml inj. ONE (12:16)
[2023-09-19] MEDS: MESSAGE TO PHARMACY PO ONE (13:55)
[2023-09-19] MEDS ORDERED: fluconazole 100mg tablet PO SCH (14:25)
[2023-09-19] MEDS: fluconazole-Diflucan 200mg/NS 100 ML IV SCH (14:32)
[2023-09-19 15:18] LABS: APTT 28 SECONDS (22-32); INR 1.1 INR; PROTHROMBIN TIME 11.4 SECONDS (9.0-12.0)
[2023-09-19] MEDS: vancomycin/NS 1 GM ADD-VANTAGE 250 ML IV SCH (16:00)
[2023-09-19] MEDS: potassium Cl 40MEQ/1/2NS 520ml 520 ML IV PRN (16:56)
[2023-09-19] MEDS: piperacillin/tazo 3.375gm/50ml 50 ML IV SCH (19:15)
[2023-09-20] MEDS ORDERED: VANCOMYCIN LEVEL IV ONE (15:30)
== END 2023-09-19 20:47 | disposition short-term general hospital (02) | DRG 720 ==
LOC: ER 17:10 → ED HOLD 20:22 → PCU 3S 09-17 16:19
PROVIDERS: ADMIT Internal Medicine; ATTEND Internal Medicine
PROC: B32T1ZZ Computerized Tomography (CT Scan) of Left Pulmonary Artery using Low Osmolar Contrast (ICD-10-PCS; principal; 2023-09-18)
PROC: B3201ZZ Computerized Tomography (CT Scan) of Thoracic Aorta using Low Osmolar Contrast (ICD-10-PCS; 2023-09-18)
PROC: B32S1ZZ Computerized Tomography (CT Scan) of Right Pulmonary Artery using Low Osmolar Contrast (ICD-10-PCS; 2023-09-18)
PROC: BW2F1ZZ Computerized Tomography (CT Scan) of Neck using Low Osmolar Contrast (ICD-10-PCS; 2023-09-19)
DX: A41.9 Sepsis, unspecified organism (principal); J96.01 Acute respiratory failure with hypoxia; J98.51 Mediastinitis; G93.41 Metabolic encephalopathy; E11.10 Type 2 diabetes mellitus with ketoacidosis without coma; E43 Unspecified severe protein-calorie malnutrition; J98.2 Interstitial emphysema; J39.0 Retropharyngeal and parapharyngeal abscess; N39.0 Urinary tract infection, site not specified; B96.1 Klebsiella pneumoniae [K. pneumoniae] as the cause of diseases classified elsewhere; D69.59 Other secondary thrombocytopenia; D64.9 Anemia, unspecified; E83.39 Other disorders of phosphorus metabolism; F17.210 Nicotine dependence, cigarettes, uncomplicated; I10 Essential (primary) hypertension; J45.909 Unspecified asthma, uncomplicated; E87.1 Hypo-osmolality and hyponatremia; E87.6 Hypokalemia; I25.10 Atherosclerotic heart disease of native coronary artery without angina pectoris; J05.10 Acute epiglottitis without obstruction; J39.2 Other diseases of pharynx; K21.9 Gastro-esophageal reflux disease without esophagitis; Z87.440 Personal history of urinary (tract) infections; Z86.14 Personal history of Methicillin resistant Staphylococcus aureus infection; Z98.891 History of uterine scar from previous surgery; Z98.51 Tubal ligation status; Z88.6 Allergy status to analgesic agent; Z91.040 Latex allergy status; Z95.1 Presence of aortocoronary bypass graft; Z68.39 Body mass index [BMI] 39.0-39.9, adult
CPT/HCPCS: 36415; 36600; 70491; 71045; 71275; 80048; 80053; 80305; 80320; 81001; 81025; 82803; 82948; 83036; 83605; 83735; 84100; 84145; 84484; 85007; 85018; 85025; 85379; 85610; 85730; 86885; 86900; 86901; 86920; 87040; 87077; 87081; 87088; 87186; 87880; 93005; 94640; 94760; 99285; A4615; G0378; J0295; J0692; J0696; J1170; J1450; J1650; J1815; J2270; J2405; J2543; J3370; J3475; J3480; J3490; J7030; J7040; J7120; J7121; Q9967

== ENCOUNTER 2024-01-09 09:12 | Emergency (ER) | payer MEDICAID ==
[~2024-01-09] VITALS: Ht 154.9 cm; Wt 82.6 kg
[~2024-01-09 09:12] MED LIST changes: +ACET325T55 PO; +AMOX-580 PO; +AMOX500C4 PO; +AMOX875T10 PO; +ATOR40TA72 PO; +AZIT-164 PO; +BENZ-111 PO; +BLOO-1084; +BUDE180A; +CEPH-585 PO; +CLIN300C56 PO; +CLOP75TA34 PO; +DEXA2TAB; +DEXA4TAB PO; +DIF150T PO; +FAMO20TA8 PO; +FERR324T2 PO; +FURO20TA4 PO; +GABAPENTIN; +HYDR-3972 PO; +IBUP-1985; +IBUP-1986; -LACT1CAP26 PO; +LANC-509; +LOT1VCR VG; +METF-900 PO; +METH-797 PO; +METO25TA6 PO; +METR-159; -MICO44CM TOP; +MONT-40 PO; +NICO-631 TOP; +NITR0.4T48; +NITR100C11 PO; +OLME5TAB29 PO; +OMEP20CA16 PO; -ONDA8TAB13 PO; +OXYC-658 PO; +OXYC5TAB2 PO; +POTA-206 PO; +PRED20TA PO; +PREG75CA76 PO; +ROSU20TA73 PO; +SITA50TA7 PO; -THIA50TA10 PO
[2024-01-09 09:16] VITALS: TEMP 98.6
[2024-01-09] MEDS ORDERED: DEC1T PO (09:25)
[2024-01-09] MEDS ORDERED: ONDA4TAB12 PO (09:25)
[2024-01-09] MEDS ORDERED: OMEP40CA21 PO (09:25)
[2024-01-09] MEDS ORDERED: CARV6.253 PO (09:25)
[2024-01-09] MEDS ORDERED: OLME5TAB32 PO (09:26)
[2024-01-09 10:00] VITALS: BP 124/82; PULSE 70; RESP 18; O2SAT 98
[2024-01-09] MEDS: HYDROcodone/acetaminophen 10/325mg tab PO ONE (10:03)
== END 2024-01-09 10:55 | disposition home or self-care (01) ==
LOC: ER 09:13
DX: M25.512 Pain in left shoulder (principal); I10 Essential (primary) hypertension; J45.909 Unspecified asthma, uncomplicated; K21.9 Gastro-esophageal reflux disease without esophagitis; E11.9 Type 2 diabetes mellitus without complications; M19.90 Unspecified osteoarthritis, unspecified site; F15.90 Other stimulant use, unspecified, uncomplicated; Z91.040 Latex allergy status; Z88.6 Allergy status to analgesic agent; Z79.899 Other long term (current) drug therapy; Z98.51 Tubal ligation status; Z98.890 Other specified postprocedural states
CPT/HCPCS: 99283

== ENCOUNTER 2025-01-08 23:02 | Emergency (ER) | payer MEDICAID ==
[~2025-01-08] VITALS: Ht 154.9 cm; Wt 88.2 kg
[~2025-01-08 23:02] MED LIST changes: -ACET325T55 PO; -AMOX-580 PO; -AMOX500C4 PO; -AMOX875T10 PO; -ASCO-134 PO; -ATOR40TA72 PO; -AZIT-164 PO; -BENZ-111 PO; -BLOO-1084; -BUDE180A; +BUDE180A5; +CARV6.253 PO; -CEPH-585 PO; -CLIN300C56 PO; +DEC1T PO; -DEXA2TAB; -DEXA4TAB PO; -DIF150T PO; -FER325T PO; -FERR324T2 PO; -FURO20TA4 PO; -GABAPENTIN; -IBUP-1985; -IBUP-1986; -LANC-509; -LOT1VCR VG; -METF-900 PO; -METO25TA6 PO; -METR-159; -MULT-25 PO; -NICO-631 TOP; -NITR0.4T48; -NITR100C11 PO; +OLME5TAB32 PO; -OMEP20CA16 PO; +OMEP40CA21 PO; +ONDA-243 PO; -OXYC-658 PO; -OXYC5TAB2 PO; -POTA-206 PO; -PRED20TA PO; -ROSU20TA73 PO; +ROSU20TA98 PO
--- NOTE | 2025-01-09 00:10 | Physician Documentation ---
History of Present Illness ~ Chief Complaint: Cough Stated Complaint: COUGH Primary Medical Doctor: Marcos DAWSON This is a 49-year-old female brought in by EMS for three days of productive cough and shortness of breath, per EMS report patient had scattered expiratory wheezes in all lu and was given a nebulizer breathing treatment with improvement in his symptoms. Patient reports she has a history of pneumonia requiring hospitalization. Medication Reconciliation Allergies: Coded Allergies: latex (Verified Allergy, Mild, MOUTH SORENESS, 09/15/23) aspirin (Verified Allergy, Unknown, 09/15/23) Scheduled Budesonide (Pulmicort Flexhaler), 1 PUFFS BID, (Reported) Carvedilol (Carvedilol), 1 TAB PO BID, (Reported) Clopidogrel Bisulfate (Clopidogrel), 1 TAB PO DAILY, (Reported) Dexamethasone* (Decadron*), 2 TAB PO ONCE, (Reported) Famotidine (Famotidine), 1 TAB PO BID, (Reported) Methocarbamol (Methocarbamol), 1 TAB PO QID, (Reported) Montelukast Sodium (Montelukast Sodium), 1 TAB PO DAILY, (Reported) Olmesartan Medoxomil (Olmesartan Medoxomil), 1 TAB PO DAILY, (Reported) Olmesartan Medoxomil* (Benicar*), 1 TAB PO DAILY, (Reported) Omeprazole (Prilosec), 1 CAP PO DAILY, (Reported) Pregabalin (Pregabalin), 1 CAP PO TID, (Reported) Rosuvastatin Calcium (Rosuvastatin Calcium), 1 TAB PO DAILY, (Reported) Sitagliptin Phosphate* (Januvia*), 1 TAB PO DAILY, (Reported) Scheduled PRN Hydrocodone Bit/Acetaminophen (Hydrocodon-Acetaminophn 10-325 tablet), 1 TAB PO QID PRN for breakthrough pain (4-10), (Reported) ONDANSETRON ODT 4mg tablet (Ondansetron Odt), 1 TAB PO Q6H PRN PRN for nausea/vomiting, (Reported) Past Medical History Past Medical History: Hypertension, Asthma, *GI/HEPATOBILIARY*, GERD, UTI, Diabetes, Arthritis, MRSA Abscess Past Surgical History: , tubal ligation Patient History: Patient reports no known family medical history. Alcohol Use: Occasionally Drug Use: methamphetamine Lives with: Family Lives In: Home Occupation: employed Physical Exam Vital Signs: Temperature: 98.8, Source: Oral, Heart Rate: 75, Respiratory Rate: 16, BP: 143/76, Pulse Oximetry: 100, Weight: 88.150 Oxygen Flow Rate: 0 Physical Exam VITALS: Reviewed and as above. GENERAL: Alert, nontoxic appearing, no apparent distress. HEENT: RESPIRATORY: No increased work of breathing, no respiratory distress, speaking in full clear sentences CHEST: CV: BACK: GI: MUSCULOSKELETAL: SKIN: NEURO: PSYCH: Progress Results/Orders Results/Orders Orders - DAVE DODGEP Chest,Two Views (01/08/25 23:10) Completed Orders - DAVE DODGEP Chest,Two Views (01/08/25 23:10) Vital Signs 01/08/25 23:06 Temp 98.8 Pulse 75 Resp 16 B/P (MAP) 143/76 Pulse Ox 100 O2 Flow Rate 0 Medical Decision Making Findings MSE performed in triage and patient returned to ED lobby by nursing staff patient is hemodynamically stable with no evidence of hypoxia Departure Referrals: NO PRIMARY CARE PROVIDER (PCP) DAVE DODGE Jan 09, 2025 00:10
--- NOTE | 2025-01-09 00:53 | RADIOLOGY REPORT ---
CHEST RADIOGRAPH Indication: C,C,C Technique: Frontal and lateral view of the chest was obtained Comparison: None FINDINGS: Lines and Tubes: None. Median sternotomy sutures. Lungs: Clear Pleura: No effusion. No pneumothorax. Cardiomediastinal contours: Unremarkable Bones: Unremarkable IMPRESSION: 1. No evidence of acute disease.
[2025-01-09 03:01] VITALS: BP 134/80; PULSE 71; RESP 16; TEMP 98.3; O2SAT 100
== END 2025-01-09 05:20 | disposition left against medical advice (07) ==
LOC: ER 23:03
DX: R05.9 Cough, unspecified (principal); R06.02 Shortness of breath; J45.909 Unspecified asthma, uncomplicated; E11.9 Type 2 diabetes mellitus without complications; I10 Essential (primary) hypertension; M19.90 Unspecified osteoarthritis, unspecified site; K21.9 Gastro-esophageal reflux disease without esophagitis; F15.90 Other stimulant use, unspecified, uncomplicated; Z98.51 Tubal ligation status; Z79.899 Other long term (current) drug therapy; Z72.89 Other problems related to lifestyle
CPT/HCPCS: 71046; 99283